=== PATIENT | male | born 1950 | race Hispanic/Latino ===

== ENCOUNTER → 2020-12-19 | Day surgery (SDC) | payer MEDICARE ==
[~2020-12-19] MED LIST: GLIPIZIDE5 MG PO; INSULIN REGULAR, HUMAN 100 UNIT/1 ML ONE; LEVOTHYROXINE75 MCG PO; LOSARTAN-HCTZ1 EACH PO; METFORMIN HCL850 MG PO; NEURONTIN300 MG PO; OMEPRAZOLE40 MG PO; SIMVASTATIN40 MG PO; VESICARE5 MG PO; VITAMIN D3 PO
[2020-12-19 10:30] LABS: BASOPHILS # (AUTO) 0.1 (0.0-0.1); BASOPHILS % 0.9 % (0.0-1.0); EOSINOPHILS # (AUTO) 0.1 (0.0-0.4); EOSINOPHILS % 1.9 % (0.0-6.0); HEMATOCRIT 35.7 % (38.2-49.6); HEMOGLOBIN 12.4 g/dL (14.0-18.0); LYMPHOCYTES # (AUTO) 1.7 (1.0-3.2); LYMPHOCYTES % 31.9 % (18.0-39.1); MEAN CORPUSCULAR HEMOGLOBIN 32.4 pg (28-32); MEAN CORPUSCULAR HGB CONC 34.7 g/dL (31-35); MEAN CORPUSCULAR VOLUME 93.2 fL (81-99); MONOCYTES # (AUTO) 0.4 (0.2-0.8); MONOCYTES % 7.4 % (4.4-11.3); NEUTROPHILS # (AUTO) 3.1 (2.1-6.9); NEUTROPHILS % 57.3 % (38.7-80.0); PLATELET COUNT 175 x10e3/uL (140-360); RED BLOOD COUNT 3.83 x10e6/uL (4.3-5.7); RED CELL DISTRIBUTION WIDTH 12.4 % (11.7-14.4)
[2020-12-19 13:30] VITALS: BP 153/81
== END | disposition home or self-care (01) ==
LOC: OR 07:39
PROVIDERS: ATTEND Internal Medicine Gastroenterology
DX: Z12.11 Encounter for screening for malignant neoplasm of colon (principal); D12.3 Benign neoplasm of transverse colon; D12.2 Benign neoplasm of ascending colon; D12.4 Benign neoplasm of descending colon; K57.30 Diverticulosis of large intestine without perforation or abscess without bleeding; K64.8 Other hemorrhoids; E11.9 Type 2 diabetes mellitus without complications; E03.9 Hypothyroidism, unspecified; E78.5 Hyperlipidemia, unspecified; I10 Essential (primary) hypertension; Z88.0 Allergy status to penicillin; Z01.810 Encounter for preprocedural cardiovascular examination; Z01.812 Encounter for preprocedural laboratory examination; Z20.822 Contact with and (suspected) exposure to COVID-19; Z79.84 Long term (current) use of oral hypoglycemic drugs; Z68.34 Body mass index [BMI] 34.0-34.9, adult
CPT/HCPCS: 36415; 45381; 45384; 45385; 82948; 85025; 88305; 93005; U0002; 45378; J1817

== ENCOUNTER 2022-02-19 08:33 | Emergency (ER) | payer MEDICARE, OTHER ==
[~2022-02-19] VITALS: Ht 170.2 cm; Wt 90.7 kg
[~2022-02-19 08:33] MED LIST changes: -INSULIN REGULAR, HUMAN 100 UNIT/1 ML ONE
== END 2022-02-19 10:46 | disposition home or self-care (01) ==
LOC: FSED 09:08
DX: S33.5XXA Sprain of ligaments of lumbar spine, initial encounter (principal); S93.492A Sprain of other ligament of left ankle, initial encounter; W18.39XA Other fall on same level, initial encounter; Y92.89 Other specified places as the place of occurrence of the external cause; I10 Essential (primary) hypertension; E11.9 Type 2 diabetes mellitus without complications; E78.5 Hyperlipidemia, unspecified; E03.9 Hypothyroidism, unspecified
CPT/HCPCS: 36415; 72110; 82948; 99282